=== PATIENT | male | born 1960 | race Caucasian/White ===

== ENCOUNTER → 2016-08-09 | Outpatient (CLI) | payer BC ==
--- NOTE | 2016-08-09 14:58 | US ---
EXAMINATION TYPE: US kidneys/renal and bladder DATE OF EXAM: 08/09/2016 COMPARISON: NONE CLINICAL HISTORY: R31.21 Asymptomatic Microscopic Hematuria. Possible kidney stone 1 month ago EXAM MEASUREMENTS: Right Kidney: 11.4 x 6.3 x 5.7 cm Left Kidney: 11.0 x 5.7 x 5.1 cm Post Void Residual Volume: 59.8 mL Right Kidney: no evidence of hydronephrosis or mass Left Kidney: lobulated, dense echogenic area mid with no shadowing = 0.5cm Bladder: appears wnl Bilateral Jets seen: yes Normal Post Void Residual: no There is no evidence for hydronephrosis at this point in time. No masses are identified. The urinar y bladder is anechoic. Bilateral ureteral jets are seen. IMPRESSION: Nonobstructing left-sided nephrolithiasis.
== END | disposition home or self-care (01) ==
LOC: RADUSWWP 14:02
PROVIDERS: ATTEND Family Medicine
DX: N20.0 Calculus of kidney (principal)
CPT/HCPCS: 76770